=== PATIENT | female | born 1985 | race African-American/Black ===

== ENCOUNTER 2024-10-27 00:05 | Emergency (ER) | payer MEDICAID, OTHER ==
[~2024-10-27] VITALS: Ht 170.2 cm; Wt 82.0 kg
[2024-10-27 00:07] VITALS: TEMP 37.1; O2SAT 100
[2024-10-27 00:29] VITALS: BP 153/85; PULSE 109; RESP 15; O2SAT 100
[2024-10-27] MEDS: EPINEPHRINE 1:1000 1 MG/ML AMP INJ ONE (01:04)
[2024-10-27] MEDS: METHYLPREDNISOLONE SOD SUCC 125MG/2ML (ACT-O-VIAL) IM ONE (01:04)
[2024-10-27] MEDS ORDERED: EPIN0.3P3 IM (02:10)
[2024-10-27] MEDS ORDERED: DIPH50CA41 MT (02:11)
[2024-10-27] MEDS ORDERED: P50 MT (02:11)
== END 2024-10-27 02:31 | disposition home or self-care (01) ==
LOC: ER 00:20
DX: T78.2XXA Anaphylactic shock, unspecified, initial encounter (principal); F10.90 Alcohol use, unspecified, uncomplicated; Y92.89 Other specified places as the place of occurrence of the external cause; Y90.9 Presence of alcohol in blood, level not specified
CPT/HCPCS: 99291; 96372; J2919; J3490